=== PATIENT | male | born 1995 | race Caucasian/White ===

== ENCOUNTER 2016-11-03 14:28 | Emergency (ER) | payer BC ==
[2016-11-03] MEDS ORDERED: ACETAMINOPHEN 500 MG TABLET PO ONE (14:31)
[2016-11-03] MEDS ORDERED: MORPHINE SULFATE 5 MG/ML PFS IVP ONE (14:31)
[2016-11-03] MEDS ORDERED: 0.9 % SODIUM CHLORIDE 1000ML 1,000 ML IV SCH ×2 (14:45→15:30)
--- NOTE | 2016-11-03 14:55 | Emergency Department Record ---
History of Present Illness - General Chief complaint: Weakness Stated complaint: WEAKNESS AND CHEST PAIN Time Seen by Provider: 11/03/16 14:30 Source: Patient Mode of Arrival: EMS Limitations: No limitations - History of Present Illness Initial comments: 21 yo male with a history of muscular dystrophy presents to ED with multiple complaints including fever, chest pain, abdominal pain, and headache symptoms. Patient reports that is pain symptoms began in his abdomen, denies cough or urinary symptoms. Patient denies neck pain or stiffness as well. Patient denies nausea or vomiting symptoms as well. MD Complaint: Generalized weakness Onset/Timin -: Hour(s) Location: Generalized Severity: Severe Severity scale (1-10): 10 Quality: Aching, Sharp Consistency: Constant Improves with: None Worsens with: None Associated Symptoms: Chest pain, Headaches - [place] Coma Scale Eye Response: (4) Open spontaneously Motor Response: (6) Obeys commands Verbal Response: (5) Oriented [place] Total: 15 - Related Data Home Medications Medication Instructions Recorded Confirmed Last Taken Dextroamphetamine/Amphetamine 1 PO TID 09/01/15 09/01/15 1 Day Ago [Adderall] Oxycodone HCl/Acetaminophen 2 tab 09/01/15 09/01/15 1 Day Ago [Percocet 10mg/325mg] Previous Rx's Medication Instructions Recorded Azithromycin [Zithromax] 500 mg PO DAILY #9 tablet 11/03/16 Allergies Allergy/AdvReac Type Severity Reaction Status Date / Time Penicillins Allergy HIVES Verified 09/01/15 15:57 Travel Screening - Travel/Exposure Within Last 30 Days Have you traveled within the last 30 days?: No Review of Systems Constitutional: Reports: Fever, Malaise, Weakness. Denies: Night sweats Eyes: Denies: Eye discharge, Eye pain ENT: Denies: Congestion, Ear pain, Epistaxis Respiratory: Denies: Cough, Dyspnea Cardiovascular: Reports: Chest pain. Denies: Dyspnea on exertion Endocrine: Reports: Fatigue. Denies: Heat or cold intolerance Gastrointestinal: Reports: Abdominal pain. Denies: Nausea, Vomiting Genitourinary: Denies: Incontinence, Retention Musculoskeletal: Reports: Myalgia. Denies: Arthralgia, Back pain, Gout, Joint swelling Skin: Denies: Bruising, Change in color Neurological: Reports: Headache. Denies: Confusion Psychiatric: Denies: Anxiety Hematological/Lymphatic: Denies: Anemia, Blood Clots Past Medical History - SOCIAL HISTORY Smoking Status: Never smoker Alcohol Use: None Drug Use: None - RESPIRATORY Hx Respiratory Disorders: Yes Hx Asthma: No Hx Pneumonia: Yes (1 month ago) - CARDIOVASCULAR Hx Cardio Disorders: No - NEURO Hx Neuro Disorders: No - GI Hx GI Disorders: No - Hx Genitourinary Disorders: No - ENDOCRINE Hx Endocrine Disorders: No - MUSCULOSKELETAL Hx Musculoskeletal Disorders: Yes Hx Musculoskeletal Disease: Yes (muscular dystrophy diagnosed at 5) Comment:: muscular dystrophy - PSYCH Hx Psych Problems: No - HEMATOLOGY/ONCOLOGY Hx Hematology/Oncology Disorders: No Family Medical History Any Significant Family History?: Yes Family Hx Comment (NOT TO BE USED IN PLACE OF ITEMS BELOW): mother was tested positive for Hep C antibodies Physical Exam - General General Appearance: Alert, Oriented x3, Cooperative, Moderate distress Limitations: No limitations - Head Head exam: Atraumatic, Normocephalic, Normal inspection Head exam detail: negative: Abrasion, Contusion, Ayers's sign, General tenderness, Hematoma, Laceration - Eye Eye exam: Normal appearance. negative: Conjunctival injection, Periorbital swelling, Periorbital tenderness, Scleral icterus - ENT Ear exam: negative: Auricular hematoma, Auricular trauma Nasal Exam: negative: Active bleeding, Discharge, Dried blood, Foreign body Mouth exam: negative: Drooling, Laceration, Muffled voice, Tongue elevation - Neck Neck exam: Normal inspection. negative: Meningismus, Tenderness - Respiratory Respiratory exam: Normal lung sounds bilaterally. negative: Rales, Respiratory distress, Rhonchi, Stridor - Cardiovascular Cardiovascular Exam: Normal rhythm, Normal heart sounds, Tachycardia - GI/Abdominal GI/Abdominal exam: Soft, Tenderness, Other (Diffuse TTP on examination, no guarding present). negative: Rebound, Rigid - Rectal Rectal exam: Deferred - exam: Deferred - Extremities Extremities exam: negative: Calf tenderness, Pedal edema - Back Back exam: Denies: CVA tenderness (R), CVA tenderness (L) - Neurological Neurological exam: Alert, Oriented X3. negative: Motor sensory deficit - Psychiatric Psychiatric exam: Normal affect, Normal mood - Skin Skin exam: Normal color. negative: Abrasion Type of lesion: negative: abrasion Course Vital Signs 11/03/16 14:32 Temperature 101.0 F H Pulse Rate 125 H Respiratory 22 Rate Blood Pressure 118/74 Pulse Ox 93 L - Reevaluation(s) Reevaluation #1: 11/03/16 15:25 Labs reviewed, WBC 20.8, AG 17.4, Lactic acide 3.8. 2nd IVF bolus ordered for sepsis as well. Patient is in CT for abdominal imaging. Reevaluation #2: 11/03/16 15:54 Portable Chest: Right perihilar infiltrate vs. atelectasis CT Abdomen and Pelvis: Findings c/w pneumonia, large amount of stool present in the rectum with mild haziness present, ? stercoral colitis? Antibiotics ordered for CAP, will discuss admission with Dr. Michel. Reevaluation #3: 11/03/16 16:08 Case was discussed with Dr. Coughlin, will transfer for secretion management. Reevaluation #4: 11/03/16 16:13 Case was discussed with Dr. Warren, will accept admission to SDU when available. IVFs continue to infuse. Reevaluation #5: 11/03/16 17:46 After a prolonged discussion with the patient and his father, the patient wants to leave AMA and not be transferred to [facility] as arranged. I did speak with both the patient and his father about the high risk of and permanent impairment of leaving against medical advice as he is taking narcotic pain medication with pneumonia. Patient and his father were counseled about the risk of respiratory depression and . Patient was further counseled about the high likelihood having to return to the ED for treatment given his current condition. Both the patient, his father, and his mother (by phone) understand the seriousness of the patient's condition, and the respect the patient's ability to make his own decisions. Patient was also counseled about the benefit of being transferred and receiving treatment for his Sepsis and pneumonia. Patient has received narcotic pain medication while in the ED, however takes Oxycontin 80 mg at home for his baseline spinal muscular dystrophy pain symptoms. As a result, the patient is fully awake, alert, and answers all questions appropriately on examination. Based on my examination and multiple times speaking with both the patient and his father, patient is at his baseline mental status without any signs of impairment. Patient has the capacity to make rational decisions based on my examination. Will discharge the patient AMA with his father with treatment for outpatient pneumonia. Patient is being discharged in guarded condition. Medical Decision Making - Lab Data Result diagrams: 11/03/16 15:00 11/03/16 15:00 Disposition Disposition: Other (AMA) Clinical Impression: CAP (community acquired pneumonia), Muscular dystrophy, congenital Sepsis Qualifiers: Sepsis type: sepsis due to unspecified organism Qualified Code(s): A41.9 - Sepsis, unspecified organism Disposition: Against Medical Advice Condition: (3) Guarded Instructions: Pneumonia (ED), Sepsis (GEN) Additional Instructions: Return to ED if your symptoms worsen or if you have any concerns. Zithromax as directed. Follow-up with Dr. Foster tomorrow, call for appointment. Prescriptions: Azithromycin [Zithromax] 500 mg PO DAILY #9 tablet Forms: Patient Portal Access Time of Disposition: 17:56
[2016-11-03 15:10] LABS: HEMOGLOBIN 14.4 gm/dl (14.0-18.0); MEAN CELL VOLUME 87.4 fl (81-97); MEAN CORPUSCULAR HEMOGLOBIN 29.3 pg (27-33); MEAN CORPUSCULAR HGB CONC 33.5 g/dl (32-36); MEAN PLATELET VOLUME 10.2 fl (7.4-10.4); PLATELET COUNT 318 K/uL (130-400); RED BLOOD COUNT 4.92 M/uL (4.40-5.70); RED CELL DISTRIBUTION WIDTH 14.9 % (11.5-14.5)
[2016-11-03 15:19] LABS: WHITE BLOOD COUNT W/O DIFF 20.8 K/uL (4.2-12.2)
[2016-11-03 15:22] LABS: ALB/GLOB RATIO 1.5 (1.1-1.8); ALBUMIN 4.4 gm/dL (3.5-5.0); ALKALINE PHOSPHATASE 61 U/L (38-126); ALT/SGPT 97 U/L (21-72); ANION GAP 17.4 (7-16); AST/SGOT 71 U/L (17-59); BILIRUBIN,TOTAL 0.44 mg/dL (0.2-1.3); BLOOD UREA NITROGEN 6 mg/dL (9-20); CARBON DIOXIDE 20.6 mmol/L (22-30); CREATININE 0.2 mg/dL (0.66-1.25); EST GLOMERULAR FILTRATION RATE > 60 ml/min; GLUCOSE,RANDOM 116 mg/dL (70-110); LIPASE 53 U/L (23-300); TOTAL PROTEIN 7.4 gm/dL (6.3-8.2)
[2016-11-03 15:25] LABS: INFLUENZA A NEGATIVE (NEGATIVE); INFLUENZA B NEGATIVE (NEGATIVE)
[2016-11-03] MEDS ORDERED: CEFTRIAXONE SODIUM 1 GM in 0.9 % SODIUM CHLORIDE 100ML 100 ML IVPB ONE (16:01)
[2016-11-03] MEDS ORDERED: AZITHROMYCIN 500 MG in 0.9 % SODIUM CHLORIDE 250ML 250 ML IVPB ONE (16:01)
[2016-11-03] MEDS ORDERED: HYDROMORPHONE HCL 1 MG/ML CPJ IVP ONE (16:10)
== END 2016-11-03 18:53 | disposition left against medical advice (07) ==
LOC: ER 14:28
DX: J18.9 Pneumonia, unspecified organism (principal); A41.9 Sepsis, unspecified organism; R07.9 Chest pain, unspecified; R51 Headache; R50.81 Fever presenting with conditions classified elsewhere; G71.0 Muscular dystrophy
CPT/HCPCS: 99284 ×2; 96365; 96366; 96375; 96368; 83605; 83690; 80053; 87400; 85027; 71010; 74177; Q9967; J1170; J2270; J0456; J7030; J7050

== ENCOUNTER 2017-01-06 18:50 | Emergency (ER) | payer BC ==
--- NOTE | 2017-01-06 19:17 | Emergency Department Record ---
History of Present Illness - General Chief Complaint: General Stated Complaint: MAY HAVE HAD A STOKE Time Seen by Provider: 01/06/17 19:11 Source: Patient, Family Mode of Arrival: Wheelchair Limitations: No limitations - History of Present Illness Initial Comments: 21 yo male with muscular dystrophy presents with left sided facial weakness that affects the mouth and eye area. He woke up on Wednesday with the symptoms at noon. He was last normal Wednesday night when he went to bed. He is not experiencing any other symptoms that are new or different from his baseline. He does have some difficulty with fully closing his left eye. No choking or gagging. No new arm or leg symptoms. His muscular dystrophy is unchanged. The weakness has not progressed since the onset. No headache. No ear ache. No fevers. -: Days(s) Location: Left face History of same: No Place: Home Severity: Moderate Quality: Constant Improves With: None Worsens With: None Context: Other (Awoke with the symptoms) Associated Symptoms: Denies other symptoms - Bennie Coma Scale Eye Response: (4) Open spontaneously Motor Response: (6) Obeys commands Verbal Response: (5) Oriented [place] Total: 15 - Symptoms of Stroke Symptoms of stroke: Weakness of Face Muscles - Related Data Home Medications: Home Medications Medication Instructions Recorded Confirmed Last Taken Dextroamphetamine/Amphetamine 1 tab PO TID 09/01/15 09/01/15 1 Day Ago [Adderall] Alprazolam [Alprazolam] 2 mg PO BID 01/06/17 01/06/17 Unknown Methadone HCl 10 mg PO BID 01/06/17 01/06/17 Unknown Previous Rx's Medication Instructions Recorded Acyclovir [Zovirax] 400 mg PO DAILY #35 tablet 01/06/17 Prednisone [Prednisone 20Mg] 20 mg PO BID #14 tab 01/06/17 Allergies/Adverse Reactions: Allergies Allergy/AdvReac Type Severity Reaction Status Date / Time Penicillins Allergy HIVES Verified 09/01/15 15:57 Review of Systems Constitutional: Reports: Weakness. Denies: Chills, Fever, Malaise Eyes: Reports: Other (lid weakness). Denies: Eye discharge, Eye pain, Photophobia, Vision change ENT: Denies: Congestion, Throat pain Respiratory: Denies: Cough Cardiovascular: Denies: Chest pain, Palpitations, Syncope Endocrine: Denies: Fatigue Gastrointestinal: Denies: Abdominal pain, Diarrhea, Nausea, Vomiting Genitourinary: Denies: Dysuria, Frequency, Hematuria Musculoskeletal: Denies: Arthralgia, Back pain, Myalgia Skin: Denies: Bruising, Change in color, Rash Neurological: Reports: Abnormal gait, Weakness. Denies: Confusion, Headache, Numbness, Paresthesias, Tingling Psychiatric: Denies: Anxiety Hematological/Lymphatic: Denies: Anemia, Blood Clots, Easy bleeding, Easy bruising, Swollen glands Past Medical History - SOCIAL HISTORY Smoking Status: Never smoker Drug Use: None - RESPIRATORY Hx Respiratory Disorders: Yes Hx Asthma: No Hx Pneumonia: Yes (1 month ago) - CARDIOVASCULAR Hx Cardio Disorders: No - NEURO Hx Neuro Disorders: No - GI Hx GI Disorders: No - Hx Genitourinary Disorders: No - ENDOCRINE Hx Endocrine Disorders: No - MUSCULOSKELETAL Hx Musculoskeletal Disorders: Yes Hx Musculoskeletal Disease: Yes (muscular dystrophy diagnosed at 5) Comment:: muscular dystrophy - PSYCH Hx Psych Problems: No - HEMATOLOGY/ONCOLOGY Hx Hematology/Oncology Disorders: No Family Medical History Family Hx Comment (NOT TO BE USED IN PLACE OF ITEMS BELOW): mother was tested positive for Hep C antibodies Physical Exam - General General Appearance: Alert, Oriented x3, Cooperative, No acute distress Limitations: No limitations - Head Head exam: Atraumatic, Normocephalic, Normal inspection - Eye Eye exam: PERRL, EOMI, Other (He has lid lag on the left side, unable to lift the left eyebrow, weakness to left smile, no drooling, voice is easy to understand). negative: Normal appearance, Conjunctival injection, Nystagmus, Periorbital swelling, Scleral icterus Pupils: Normal accommodation. negative: Irregular, Unequal - ENT ENT exam: Mucous membranes moist, Normal orophraynx, TM's normal bilaterally. negative: Normal exam Ear exam: Normal external inspection Nasal Exam: Normal inspection Mouth exam: Tongue normal. negative: Normal external inspection, Drooling, Muffled voice, Tongue elevation, Trismus Teeth exam: Normal inspection Throat exam: Normal inspection. negative: Tonsillar erythema, Tonsillomegaly - Neck Neck exam: Normal inspection, Full ROM. negative: Lymphadenopathy, Tenderness - Respiratory Respiratory exam: Normal lung sounds bilaterally. negative: Accessory muscle use, Respiratory distress, Wheezes - Cardiovascular Cardiovascular Exam: Regular rate, Normal rhythm, Normal heart sounds - GI/Abdominal GI/Abdominal exam: Soft - Rectal Rectal exam: Deferred - exam: Deferred - Extremities Extremities exam: Normal inspection, Normal capillary refill. negative: Calf tenderness, Tenderness - Back Back exam: Reports: Normal inspection, Full ROM. Denies: Muscle spasm, Rash noted, Tenderness - Neurological Neurological exam: Abnormal gait, Alert, Motor sensory deficit (Left facial weakness that involves the upper face including eyebrow and lid and smile on the left), Oriented X3. negative: Altered, CN II-XII intact, Reflexes normal - Psychiatric Psychiatric exam: Normal affect, Normal mood. negative: Agitated, Anxious - Skin Skin exam: Dry, Intact, Normal color, Warm. negative: Cyanosis, Diaphoretic, Erythema Course Vital Signs 01/06/17 19:04 Temperature 98.3 F Pulse Rate [ 110 H Pulse Ox Probe] Respiratory 20 Rate Blood Pressure 124/82 [Left Arm] Pulse Ox 97 - Reevaluation(s) Reevaluation #1: The patient's examination is consistent with a peripheral nerve issue and not a central event or stroke. He has both forehead/eye and mouth weakness consistent with a peripheral nerve. He is able to close the eye but weakness is noted. The head CT scan was negative. I spoke at length about Hayes's Palsy, treatment, home care and prognosis. I explained that delay in the treatment may affect his ultimate outcome as well. We discussed eye protection if needed due to lid lag. We discussed close follow up with the PCP and reasons to return He was provided Rx for Acyclovir and Prednisone 01/06/17 22:52 Medical Decision Making - Lab Data Result diagrams: 01/06/17 20:42 01/06/17 20:42 Disposition Disposition: Discharge Clinical Impression: Hayes's palsy Disposition: Home, Self-Care Condition: (1) Good Instructions: Hayes Palsy (ED) Additional Instructions: Call your doctor tomorrow for close follow up Protect the left eye with drop if it is not closing all the way especially at night tight Return if any new symptoms occur or any new concerns with your current symptoms Prescriptions: Prednisone [Prednisone 20Mg] 20 mg PO BID #14 tab Acyclovir [Zovirax] 400 mg PO DAILY #35 tablet Forms: Patient Portal Access Time of Disposition: 21:52
[2017-01-06] MEDS: ALPRAZOLAM 1 MG TAB PO ONE (20:47)
[2017-01-06 20:52] LABS: BASO % 0.3 % (0-6); EOS % 1.9 % (0-6); GRAN % 63.2 % (47-80); HEMATOCRIT 42.5 % (42.0-52.0); HEMOGLOBIN 14.1 gm/dl (14.0-18.0); LYMPH % 26.1 % (16-45); MEAN CELL VOLUME 85.9 fl (81-97); MEAN CORPUSCULAR HEMOGLOBIN 28.5 pg (27-33); MEAN CORPUSCULAR HGB CONC 33.2 g/dl (32-36); MEAN PLATELET VOLUME 10.2 fl (7.4-10.4); MONO % 8.5 % (0-9); PLATELET COUNT 339 K/uL (130-400); RED BLOOD COUNT 4.95 M/uL (4.40-5.70); RED CELL DISTRIBUTION WIDTH 13.7 % (11.5-14.5); WHITE BLOOD COUNT W/O DIFF 11.5 K/uL (4.2-12.2)
[2017-01-06] MEDS: OXYCODONE HCL/APAP 5MG/325MG TABLET PO ONE (20:57)
[2017-01-06] MEDS: OXYCODONE/APAP 10MG-325MG TABLET PO ONE (20:58)
[2017-01-06 21:03] LABS: ANION GAP 11.4 (7-16); BLOOD UREA NITROGEN 11 mg/dL (9-20); CARBON DIOXIDE 23.6 mmol/L (22-30); CREATININE 0.3 mg/dL (0.66-1.25); EST GLOMERULAR FILTRATION RATE > 60 ml/min; GLUCOSE,RANDOM 95 mg/dL (70-110)
[2017-01-06] MEDS: PREDNISONE 20 MG TAB PO ONE (22:04)
[2017-01-06] MEDS: ACYCLOVIR 200 MG CAPSULE PO ONE (22:04)
== END 2017-01-06 22:11 | disposition home or self-care (01) ==
LOC: ER 18:50
DX: G51.0 Bell's palsy (principal); G71.0 Muscular dystrophy
CPT/HCPCS: 99283; 99284; 85025; 80048; 70450; J7512

== ENCOUNTER 2019-10-22 15:55 | Emergency (ER) | payer MEDICAID ==
[2019-10-22 17:03] LABS: INFLUENZA A NEGATIVE (NEGATIVE); INFLUENZA B NEGATIVE (NEGATIVE)
[2019-10-22] MEDS ORDERED: 0.9 % SODIUM CHLORIDE 1,000 ML BAG IV ONE (17:05)
[2019-10-22] MEDS ORDERED: ACETAMINOPHEN 500 MG TABLET PO ONE (17:06)
--- NOTE | 2019-10-22 17:22 | Emergency Department Record ---
History of Present Illness - General Chief complaint: Vomiting Stated complaint: ARIANA VOMITTING HEADACHE Time Seen by Provider: 10/22/19 17:04 Source: Patient, Family (mother) Mode of Arrival: Wheelchair Limitations: No limitations - History of Present Illness Initial comments: Pt to ED from home with his mother. Pt is wheelchair bound, non ambulatory m uscular dystrophy pt with complaint of vomiting, headache, and ARIANA. Pt has a cough for 2 days. Pt relates others at home have similar symptoms with vomiting. There is no diarrhea. He has no abdominal pain. Pt denies pain with urination or frequency. Onset/Timin -: Days(s) Quality: Aching Consistency: Constant Improves with: None Worsens with: None Associated Symptoms: Fever/chills, Headaches, Nausea/vomiting, Weakness - Related Data Previous Rx's Medication Instructions Recorded Ondansetron [Zofran Odt] 4 mg PO Q8H 4 Days #12 tab.rapdis 10/22/19 Allergies Allergy/AdvReac Type Severity Reaction Status Date / Time Penicillins Allergy HIVES Verified 10/22/19 16:36 Travel/Exposure Screening - Travel/Exposure Within Last 30 Days Have you traveled within the last 30 days?: No - Additonal Travel/Exposure Details Have you been exposed to anyone with a communicable illness?: No Review of Systems Constitutional: Reports: Malaise, Other (Pt did not check temps at home. Not aware of fever on arrival 101.5). Denies: Chills, Fever Eyes: Denies: Eye pain, Photophobia ENT: Denies: Congestion, Ear pain, Throat pain Respiratory: Reports: As per HPI, Cough, Dyspnea. Denies: Hemoptysis, Wheezes Cardiovascular: Denies: Chest pain, Syncope Endocrine: Reports: Fatigue. Denies: Polydipsia, Polyuria Gastrointestinal: Reports: As per HPI, Nausea, Vomiting. Denies: Abdominal pain, Diarrhea Genitourinary: Denies: Dysuria, Frequency Musculoskeletal: Reports: Myalgia Skin: Denies: Bruising, Rash Neurological: Reports: Headache. Denies: Tingling, Tremors, Weakness Psychiatric: Denies: Anxiety Hematological/Lymphatic: Denies: Anemia Past Medical History - SOCIAL HISTORY Smoking Status: Never smoker Alcohol Use: None Drug Use: None - RESPIRATORY Hx Respiratory Disorders: Yes Hx Pneumonia: Yes - CARDIOVASCULAR Hx Cardio Disorders: No - NEURO Hx Neuro Disorders: No - GI Hx GI Disorders: No - Hx Genitourinary Disorders: No - ENDOCRINE Hx Endocrine Disorders: No - MUSCULOSKELETAL Hx Musculoskeletal Disorders: Yes Hx Musculoskeletal Disease: Yes Comment:: muscular dystrophy - PSYCH Hx Psych Problems: No - HEMATOLOGY/ONCOLOGY Hx Hematology/Oncology Disorders: No Family Medical History Any Significant Family History?: No Family Hx Comment (NOT TO BE USED IN PLACE OF ITEMS BELOW): mother was tested positive for Hep C antibodies Physical Exam - General General Appearance: Alert, Oriented x3, Cooperative, Mild distress Limitations: Other (non toxic ) - Head Head exam: Atraumatic, Normocephalic - Eye Eye exam: Normal appearance, PERRL - ENT ENT exam: Mucous membranes dry Ear exam: Other (cerumen bilateral ) Nasal Exam: Normal inspection Mouth exam: Normal external inspection Teeth exam: Normal inspection Throat exam: Normal inspection. negative: Tonsillomegaly, Tonsillar exudate - Neck Neck exam: Normal inspection, Full ROM. negative: Lymphadenopathy, Meningismus, Tenderness - Respiratory Respiratory exam: Normal lung sounds bilaterally, Other (pt is difficult to examine due to body habitus). negative: Respiratory distress, Rhonchi, Wheezes - Cardiovascular Cardiovascular Exam: Regular rate, Normal rhythm Peripheral Pulses: 2+: Radial (R), Radial (L) - GI/Abdominal GI/Abdominal exam: Soft. negative: Guarding, Rebound, Tenderness (obese ) - Extremities Extremities exam: Other (Pt with lower extremity weakness secondary to MD, unchanged per family. ) - Back Back exam: Denies: Paraspinal tenderness, Vertebral tenderness - Neurological Neurological exam: Alert, Oriented X3, Other (chronic weakness to LE bilateral ) - Psychiatric Psychiatric exam: Normal affect, Normal mood - Skin Skin exam: Normal color (Exam of the sacral area with local redness but no open skin sores. ) Course Vital Signs 10/22/19 16:33 Temperature 101.5 F H Pulse Rate 114 H Respiratory 22 Rate Blood Pressure 104/74 Pulse Ox 96 - Reevaluation(s) Reevaluation #1: 10/22/19 17:34 Pt seen on arrival in his wheel chair and request to moved to the cart. Pt is over 300# and unable to move self. With two RNs we transferred him to a bed. He is placed in a position of comfort seated with head up. Pt cooperative. Tylenol is given for fever. IV access is difficult with multiple attempts. Plan for labs, Xray and re eval. Mother at bedside throughout. Reevaluation #2: 10/22/19 18:36 Pt with temp down and labs resulted. Feeling better! Drinking fluids. MORA much better. Discussed normal labs and clean UA. Pt family members with similar symptoms at home. Most likely viral illness. Plan is for home iwht Zofran prn and tylenol for fevers. Pt understands and agrees. Procedures - EKG Initial Date: 10/22/19 Time: 17:30 EKG: Abnormal EKG (sinus tachy at 116, no prior. ) Medical Decision Making - Data Complexity MDM Data: Labs Ordered and/or Reviewed, X-Ray Ordered and/or Reviewed, EKG Ordered and/or Reviewed, Independent Visualization of Image, Tracing, or Specimen, Decision to Obtain Old Record, Review and Summary of Old Record Discussed - Lab Data Result diagrams: 10/22/19 17:40 10/22/19 17:45 Lab Results 10/22/19 Range/Units 16:39 Influenza Type A Ag Negative (NEGATIVE) Influenza Type B Ag Negative (NEGATIVE) - EKG Data -: EKG Interpreted by Me EKG: Abnormal EKG (ST 116) - Radiology Data Radiology results: Image reviewed -: Radiology Exam Interpreted by Myself (limited by size: neg as seen ) Disposition Disposition: Discharge Clinical Impression: Muscular dystrophy, congenital, Dehydration, moderate Vomiting Qualifiers: Vomiting type: unspecified Vomiting Intractability: non-intractable Nausea presence: with nausea Qualified Code(s): R11.2 - Nausea with vomiting, unspecified Fever Qualifiers: Fever type: unspecified Qualified Code(s): R50.9 - Fever, unspecified Headache Qualifiers: Headache type: unspecified Headache chronicity pattern: acute headache Intractability: not intractable Qualified Code(s): R51 - Headache Disposition: Home, Self-Care Condition: (2) Stable Instructions: Acute Nausea and Vomiting (ED), Dehydration (ED) Additional Instructions: Clear liquid diet for 24 hours then advance as tolerated. Take Zofran as needed for vomiting. Tylenol for fever See your doctor for recheck in 1-2 days Return to the ED as needed. Prescriptions: Ondansetron [Zofran Odt] 4 mg PO Q8H 4 Days #12 tab.rapdis Forms: Patient Portal Access Quality - Quality Measures Quality Measures: N/A, Blunt Head Trauma (>2yr) - Blunt Head Trauma - Adult Quality Measure: Measure #415: Utilization of CT for Minor Blunt Head Trauma ICD10 Codes Entered: Yes Bennie Score: Please complete Bennie Coma Scale above - Blood Pressure Screening Does Patient Have Any of the Following: No Blood Pressure Classification: Normal BP Reading Systolic Measurement: 104 Diastolic Measurement: 74 Screening for High Blood Pressure: < Normal BP, F/U Not Required > [G8783]
[2019-10-22 17:41] LABS: ABSOLUTE NEUTROPHIL COUNT 5.93; HEMOGLOBIN 14.8 gm/dl (14.0-18.0); MEAN CELL VOLUME 82.7 fl (81-97); MEAN CORPUSCULAR HEMOGLOBIN 27.8 pg (27-33); MEAN CORPUSCULAR HGB CONC 33.6 g/dl (32-36); MEAN PLATELET VOLUME 10.4 fl (7.4-10.4); PLATELET COUNT 118 K/uL (130-400); RED BLOOD COUNT 5.32 M/uL (4.40-5.70); RED CELL DISTRIBUTION WIDTH 16.3 % (11.5-14.5); WHITE BLOOD COUNT W/O DIFF 7.1 K/uL (4.2-12.2)
--- NOTE | 2019-10-22 18:00 | RADIOLOGY REPORT ---
EXAMINATION: Single View Chest EXAM DATE: 10/22/2019 5:45 PM TECHNIQUE: Single view chest INDICATION: cough with fever COMPARISON: 11/03/2016 ENCOUNTER: Not applicable FINDINGS: Lung volumes remain low. Allowing for this, the heart and pulmonary vessels are normal. No infiltrate or effusion is identified IMPRESSION: Low lung volumes, otherwise negative Dictated by: Krishan Allison MD on 10/22/2019 5:57 PM. .
[2019-10-22 18:15] LABS: BLOOD UREA NITROGEN 10 mg/dL (6-20); CREATININE < 0.5 mg/dL (0.7-1.2); EST GLOMERULAR FILTRATION RATE > 60 mL/min
[2019-10-22 18:16] LABS: TOTAL PROTEIN 7.9 g/dL (6.6-8.7)
[2019-10-22 18:17] LABS: URINE APPEARANCE CLEAR; URINE BILIRUBIN NEGATIVE (NEGATIVE); URINE BLOOD NEGATIVE (NEGATIVE); URINE COLOR ORANGE; URINE GLUCOSE (UA) NEGATIVE (NEGATIVE); URINE KETONE NEGATIVE (NEGATIVE); URINE LEUKOCYTE ESTERASE SMALL (NEGATIVE); URINE NITRITE NEGATIVE (NEGATIVE); URINE PROTEIN NEGATIVE (NEGATIVE); URINE UROBILINOGEN 0.2 E.U./dL (0.20 - 1.00)
[2019-10-22 18:17] LABS: GLUCOSE,RANDOM 98 mg/dL (74-109)
[2019-10-22 18:20] LABS: ALBUMIN 3.9 g/dL (4.0-5.0); ALKALINE PHOSPHATASE 71 U/L (40-129); ALT/SGPT 28 U/L (<41); AST/SGOT 25 U/L (10.0-50.0)
[2019-10-22 18:20] LABS: PHENCYCLIDINE SCREEN URINE NOT DETECTED
[2019-10-22 18:21] LABS: AMPHETAMINE SCREEN URINE DETECTED; BARBITURATE SCREEN URINE NOT DETECTED; BENZODIAZEPINE SCREEN URINE DETECTED; COCAINE SCREEN URINE NOT DETECTED; METHADONE SCREEN URINE DETECTED; METHAMPHETAMINE SCREEN NOT DETECTED; OPIATE SCREEN URINE DETECTED; OXYCODONE SCREEN URINE DETECTED; PROPOXYPHENE SCREEN URINE NOT DETECTED; THC SCREEN URINE DETECTED; TRICYCLIC ANTIDEPRESSANT SCRN NOT DETECTED
[2019-10-22] MEDS ORDERED: KETOROLAC 30 MG/ML VIAL IVP ONE (18:22)
[2019-10-22 18:25] LABS: URINE BACTERIA NONE SEEN; URINE EPITHELIAL CELLS 0 - 2 (FEW); URINE RBC NONE SEEN (NONE SEEN)
[2019-10-22] MEDS ORDERED: ONDANSETRON HCL IV 4 MG/2 ML VIAL IVP ONE (18:42)
[2019-10-22] MEDS ORDERED: ONDANSETRON 4 MG ODT TABLET SL ONE (19:32)
== END 2019-10-22 19:35 | disposition home or self-care (01) ==
LOC: ER 15:55
DX: E86.0 Dehydration (principal); R06.00 Dyspnea, unspecified; R51 Headache; R11.2 Nausea with vomiting, unspecified; R53.1 Weakness
CPT/HCPCS: 99284 ×2; 96374; 96375; 96361; 83605; 80305; 80053; 81001; 87400; 85027; 71045; 93005; J1885; J2405; 93010